=== PATIENT | female | born 1955 | race Caucasian/White ===

== ENCOUNTER → 2019-11-16 | Outpatient (CLI) | payer OTHER ==
[~2019-11-16] MED LIST: KETO10TA2 PO; TAMS0.4C PO
== END | disposition home or self-care (01) ==
LOC: TOM 08:15
DX: R10.84 Generalized abdominal pain (principal)

== ENCOUNTER 2021-05-15 07:22 | Outpatient (CLI) | payer OTHER | END 2021-05-15 07:29 | disposition home or self-care (01) | LOC: RX STUDY 07:22 | PROVIDERS: ATTEND Internal Medicine | DX: K22.2 Esophageal obstruction (principal) ==

== ENCOUNTER 2021-09-17 07:16 | Outpatient (CLI) | payer OTHER | END 2021-09-17 07:17 | disposition home or self-care (01) | LOC: NUCLEAR 07:16 | PROVIDERS: ATTEND Internal Medicine Cardiovascular Disease | DX: I25.110 Atherosclerotic heart disease of native coronary artery with unstable angina pectoris (principal) | CPT/HCPCS: 78452; A9500 ==